=== PATIENT | female | born 1995 | race Caucasian/White ===

== ENCOUNTER 2018-12-19 22:18 | Emergency (ER) | payer SELFPAY ==
[~2018-12-19] VITALS: Ht 154.9 cm; Wt 47.6 kg
[2018-12-19 22:53] LABS: *BILIRUBIN,URIN NEGATIVE (NEGATIVE); *BLOOD, URINE 2+ (NEGATIVE); *CLARITY,URINE CLOUDY (CLEAR); *COLOR,URINE YELLOW (YELLOW); *KETONES,URINE 1+ (NEGATIVE); *UROBILINOGEN,URINE 0.2 E.U./dl (NORMAL); LEUKOCYTE ESTERASE ,URINE 2+ (NEGATIVE); NITRITE, URINE NEGATIVE (NEGATIVE); UGLUCOSE NEGATIVE (NEGATIVE)
--- NOTE | 2018-12-19 22:54 | NUR ---
Patient is AAxOx4. Able to speak in complete sentences. Speech is clear. No neuro deficits noted. Patient has c/o R flank pain since Monday. She describes the pain as sharp/stabbing. Patient endorses dysuria starting last week. +urgency. Pain becomes worse with movement/ADLs. Pain is 8/10. LMP 12/11/18. respirations even and unlabored. Symmetrical rise noted. No SOB/cough noted. No cardiovascular distress noted, all pulses palpable. No GI distress noted. . Ambulated into dept with stable gait. Bed in lowest position, siderails up x 2. Call light is within reach. Fall precautions implemented per dept policy.
[2018-12-19 22:59] LABS: *URINE HCG, QUAL NEGATIVE (NEGATIVE)
[2018-12-19 23:02] LABS: BACTERIA,URINE MANY /HPF (NONE SEEN); MUCUS,URINE MODERATE /LPF (0-FEW); RBC,URINE 20-50 /HPF (0-3); SQUAMOUS EPITHELIAL CELL,UR MODERATE /HPF (NONE SEEN); WBC,URINE 80-100 /HPF (0-3)
[2018-12-19] MEDS ORDERED: ONDANSETRON ODT 4 MG TAB.RAPDIS SL ONE (23:15)
[2018-12-19] MEDS ORDERED: CEphaleXIN 500 MG CAPSULE PO ONE (23:15)
[2018-12-19] MEDS ORDERED: PHENAZOPYRIDINE HCL 100 MG TABLET PO ONE (23:15)
--- NOTE | 2018-12-19 23:19 | NUR ---
Patient discharged to home in stable conditon. Written and verbal after care instructions given. Patient verbalizes understanding of instructions. Ambulated from ER with stable gait. All belongings with patient.
[2018-12-19] MEDS ORDERED: ONDANSETRON ODT 4 MG TAB.RAPDIS ONE (23:20)
[2018-12-19] MEDS ORDERED: PHENAZOPYRIDINE HCL 100 MG TABLET ONE (23:20)
[2018-12-19] MEDS ORDERED: CEphaleXIN 500 MG CAPSULE ONE (23:20)
[2018-12-19 23:21] VITALS: BP 121/77
== END 2018-12-19 23:22 | disposition home or self-care (01) ==
LOC: ER 22:23
DX: N39.0 Urinary tract infection, site not specified (principal)
CPT/HCPCS: 84703; 87077; 87086; A4663; Q0162